=== PATIENT | female | born 1975 | race Caucasian/White ===

== ENCOUNTER 2019-10-10 07:27 | Inpatient (IN) | payer MEDICAID ==
[~2019-10-10] VITALS: Ht 160 cm; Wt 54.1 kg
[2019-10-10 08:59] VITALS: BP 141/95
[2019-10-10] MEDS ORDERED: MAG HYDROX/AL HYDROX/SIMETH ES 30 ML SUSPENSION UDCUP PO PRN (09:45)
[2019-10-10] MEDS ORDERED: OLANZapine 5 MG RAPDIS TABLET PO PRN (09:45)
[2019-10-10] MEDS ORDERED: LOPERAMIDE HCL 2 MG CAPSULE PO PRN (09:45)
[2019-10-10] MEDS ORDERED: GuaiFENesin/D-METHORPHAN [SUGAR-FREE] 200-20MG/10 ML SYRUP UDCUP PO PRN (09:45)
[2019-10-10] MEDS ORDERED: TUBERCULIN, PURIFIED PROTEIN DERIVATIVE 5 TU/0.1 ML SYRINGE ID ONE (09:45)
[2019-10-10] MEDS ORDERED: PROMETHAZINE HCL 25 MG TABLET PO PRN (09:45)
[2019-10-10] MEDS ORDERED: MAGNESIUM HYDROXIDE SUSPENSION 30 ML UDCUP PO PRN (09:45)
[2019-10-10] MEDS ORDERED: ACETAMINOPHEN 325 MG TABLET PO PRN (09:45)
[2019-10-10] MEDS ORDERED: LORazepam 2 MG TABLET PO PRN (09:45)
[2019-10-10] MEDS ORDERED: GABAPENTIN 300 MG CAPSULE PO PRN (15:30)
[2019-10-10 16:30] VITALS: BP 117/95
[2019-10-10] MEDS: GABAPENTIN 100 MG CAPSULE PO SCH (16:32)
[2019-10-10] MEDS: THIAMINE 100 MG TABLET PO SCH (16:32)
[2019-10-10] MEDS: OLANZapine 5 MG RAPDIS TABLET PO SCH (20:44)
[2019-10-10] MEDS: ZOLPIDEM TARTRATE 10 MG TABLET PO PRN (21:00)
[2019-10-11 06:53] VITALS: BP 125/88
[2019-10-11 08:13] LABS: BASOPHILS % (AUTO) 0.7 % (0.0-2.0); HEMATOCRIT 38.9 % (36-46); HEMOGLOBIN 13.4 g/dL (12.0-16.0); LYMPHOCYTES # (AUTO) 1.7 K/uL (1.0-4.8); LYMPHOCYTES % (AUTO) 21.6 % (22.0-44.0); MEAN CORPUSCULAR HEMOGLOBIN 30.6 pg (26.0-34.0); MEAN CORPUSCULAR HGB CONC 34.4 G/dL (31.0-37.0); MEAN CORPUSCULAR VOLUME 89 fL (80-100); MONOCYTES # (AUTO) 0.6 K/uL (0.1-1.0); NEUTROPHILS # (AUTO) 5.1 K/uL (1.8-7.7); NEUTROPHILS % (AUTO) 64.7 % (40.0-70.0); PLATELET COUNT (AUTO) 302 K/uL (150-450); RED BLOOD CELL COUNT(AUTO) 4.37 MIL/uL (4.00-5.20)
[2019-10-11 08:35] LABS: ALANINE AMINOTRANSFERASE 27 U/L (12-78); ALBUMIN 3.5 g/dL (3.4-5.0); ALKALINE PHOSPHATASE 51 U/L (46-116); ANION GAP 9 mmol/L (8-16); ASPARTATE AMINOTRANSFERASE 17 U/L (15-37); BILIRUBIN,TOTAL 0.7 mg/dL (0.1-1.0); CALCIUM, TOTAL 8.2 mg/dL (8.8-10.5); CARBON DIOXIDE 24 mmol/L (22-29); CHLORIDE 109 mmol/L (98-107); CHOL/HDL RATIO 3.9 (3.9-5.7); CHOLESTEROL 207 mg/dL (131-200); CREATININE 0.66 mg/dL (0.60-1.30); FREE T4 (FREE THYROXINE) 1.08 ng/dL (0.76-1.46); GLOMERULAR FILTR. RATE CALC > 60 mL/min (>60); GLUCOSE,RANDOM 85 mg/dL (70-110); HCG,QUANTITATIVE < 1 mIU/mL (0-6); HDL CHOLESTEROL 53 mg/dL (40-60); LDL CHOL (CALC.) 140 mg/dL (0-130); POTASSIUM 3.7 mmol/L (3.5-5.1); SODIUM SERUM 142 mmol/L (136-145); THYROID STIMULATING HORMONE 1.89 uIU/mL (0.36-3.74); TOTAL PROTEIN, SERUM 6.2 g/dL (6.4-8.2); TRIGLYCERIDES 69 mg/dL (15-150); UREA NITROGEN, BLOOD 11 mg/dL (7-18)
[2019-10-11 08:38] LABS: HEMOGLOBIN A1C 5.1 % (3.8-5.6)
[2019-10-11] MEDS: GABAPENTIN 100 MG CAPSULE PO SCH ×3 (09:00→16:30)
[2019-10-11] MEDS: NALTREXONE HCL 50 MG TABLET PO SCH (09:00)
[2019-10-11] MEDS: THIAMINE 100 MG TABLET PO SCH ×2 (09:08→16:30)
[2019-10-11] MEDS: MULTIVITAMINS WITH MINERALS, THERAPEUTIC TABLET PO SCH (09:08)
[2019-10-11] MEDS: FOLIC ACID 1 MG TABLET PO SCH (09:08)
[2019-10-11 14:46] VITALS: BP 105/70
[2019-10-11 17:31] VITALS: BP 129/66
[2019-10-11] MEDS: ZOLPIDEM TARTRATE 10 MG TABLET PO PRN (20:42)
[2019-10-11] MEDS: OLANZapine 5 MG RAPDIS TABLET PO SCH (20:42)
[2019-10-12 05:50] VITALS: BP 119/84
[2019-10-12] MEDS: HydrOXYzine PAMOATE 50 MG CAPSULE PO PRN ×2 (05:56→12:58)
[2019-10-12 08:09] VITALS: BP 120/78
[2019-10-12] MEDS: MULTIVITAMINS WITH MINERALS, THERAPEUTIC TABLET PO SCH (08:41)
[2019-10-12] MEDS: FOLIC ACID 1 MG TABLET PO SCH (08:41)
[2019-10-12] MEDS: THIAMINE 100 MG TABLET PO SCH ×2 (08:41→16:03)
[2019-10-12] MEDS: GABAPENTIN 100 MG CAPSULE PO SCH ×4 (08:56→16:09)
[2019-10-12] MEDS: NALTREXONE HCL 50 MG TABLET PO SCH (08:56)
[2019-10-12 16:00] VITALS: BP 104/81
[2019-10-12] MEDS: LORazepam 1 MG TABLET PO PRN (16:04)
[2019-10-12] MEDS: OLANZapine 5 MG RAPDIS TABLET PO SCH (20:56)
[2019-10-12] MEDS ORDERED: ZOLPIDEM TARTRATE 10 MG TABLET PO SCH (21:00)
[2019-10-13 01:09] VITALS: BP 107/73
[2019-10-13 08:13] VITALS: BP 124/93
[2019-10-13] MEDS: THIAMINE 100 MG TABLET PO SCH (08:30)
[2019-10-13] MEDS: FOLIC ACID 1 MG TABLET PO SCH (08:30)
[2019-10-13] MEDS: LORazepam 1 MG TABLET PO PRN (08:30)
[2019-10-13] MEDS: MULTIVITAMINS WITH MINERALS, THERAPEUTIC TABLET PO SCH (08:30)
[2019-10-13] MEDS: NALTREXONE HCL 50 MG TABLET PO SCH (08:31)
[2019-10-13] MEDS: GABAPENTIN 100 MG CAPSULE PO SCH (08:31)
[2019-10-13] MEDS ORDERED: ATORVASTATIN CALCIUM 10 MG TABLET PO SCH (09:00)
[2019-10-13] MEDS ORDERED: NALT50TA PO (11:56)
[2019-10-13] MEDS ORDERED: OLAN5TAB30 PO (11:56)
== END 2019-10-13 14:10 | disposition home or self-care (01) | DRG 750 ==
LOC: B2S 09:00
PROVIDERS: ADMIT Psychiatry & Neurology Psychiatry; ATTEND Psychiatry & Neurology Psychiatry
DX: F25.9 Schizoaffective disorder, unspecified (principal); E78.5 Hyperlipidemia, unspecified; F12.90 Cannabis use, unspecified, uncomplicated; Z91.19 Patient's noncompliance with other medical treatment and regimen
CPT/HCPCS: 83036; 84439; 84443; 86592